=== PATIENT | male | born 1980 ===

== ENCOUNTER 2016-11-27 14:23 | Emergency (ER) | payer OTHER ==
[2016-11-27 14:30] VITALS: BP 149/93; PULSE 80; RESP 18; TEMP 98.4; O2SAT 100
--- NOTE | 2016-11-27 14:48 | ED PDOC ---
Syncope/Near Syncope/Dizziness Time Seen by Provider: 11/27/16 14:43 Chief Complaint (Nursing): Dizziness/Lightheaded Chief Complaint (Provider): Crisis eval History Per: Patient Additional Complaint(s): Pt is a 36 yo male, PMH of High Cholesterol, presents to ED with complaints of acute onset of feeling jittery, dizzy, diaphoretic and nervous ~ 40 minutes ago after he was involved in a verbal alteration with his and mother. No chest pain or SOB Past Medical History Reviewed: Nursing Documentation, Vital Signs Vital Signs: Last Vital Signs Temp 98.4 F 11/27/16 14:28 Pulse 80 11/27/16 14:28 Resp 18 11/27/16 14:28 BP 149/93 H 11/27/16 14:28 Pulse Ox 100 11/27/16 14:28 - Medical History PMH: Hypercholesterolemia - Surgical History Surgical History: No Surg Hx - Family History Family History: States: Unknown Family Hx - Living Arrangements Living Arrangements: With Family - Social History Current smoker - smoking cessation education provided: No Alcohol: Social Drugs: Denies - Immunization History Hx Tetanus Toxoid Vaccination: No Hx Influenza Vaccination: No Hx Pneumococcal Vaccination: No - Home Medications Home Medications: Ambulatory Orders Medication Instructions Recorded Ondansetron [Zofran] 4 mg PO Q8H #10 tab 11/13/15 Alprazolam [Xanax] 0.5 mg PO HS #5 tab 11/27/16 - Allergies Allergies/Adverse Reactions: Allergies Allergy/AdvReac Type Severity Reaction Status Date / Time No Known Allergies Allergy Verified 11/27/16 14:28 Review of Systems ROS Statement: Except As Marked, All Systems Reviewed And Found Negative Physical Exam - Reviewed Nursing Documentation Reviewed: Yes Vital Signs Reviewed: Yes - Physical Exam Appears: Positive for: Well, Non-toxic, No Acute Distress Head Exam: Positive for: ATRAUMATIC, NORMAL INSPECTION, NORMOCEPHALIC Skin: Positive for: Normal Color, Warm, DRY Eye Exam: Positive for: EOMI, Normal appearance, PERRL ENT: Positive for: Normal ENT Inspection Neck: Positive for: Normal, Painless ROM Cardiovascular/Chest: Positive for: Regular Rate, Rhythm Respiratory: Positive for: CNT, Normal Breath Sounds Gastrointestinal/Abdominal: Positive for: Normal Exam, Bowel Sounds, Soft Back: Positive for: Normal Inspection Extremity: Positive for: Normal ROM Neurologic/Psych: Positive for: Alert, Oriented - Laboratory Results Result Diagrams: 11/27/16 14:45 11/27/16 14:45 - ECG O2 Sat by Pulse Oximetry: 100 Medical Decision Making Medical Decision Making: Pt asymptomatic, declines analgesics or anxiolytics at this time EKG interpreted and cleared by ED MD Labs resulted and reviewed with Pt who demonstrated full understanding Pt doing well on re-eval. declined crisis eval Coping mechanisms discussed Stable for discharge at this time Disposition - Clinical Impression Clinical Impression: Panic attack - Patient ED Disposition Is Patient to be Admitted: No - Disposition Disposition: Routine/Home Disposition Time: 18:52 Condition: STABLE Prescriptions: Alprazolam [Xanax] 0.5 mg PO HS #5 tab Instructions: Panic Attack (ED) Forms: [facility] (Gambian)
[2016-11-27 15:08] LABS: BASO % 0.4 % (0.0-2.0); EOS # 0.3 K/uL (0.0-0.7); EOS % 4.2 % (0.0-4.0); HEMOGLOBIN 15.8 g/dL (12.0-18.0); LYMPH # 3.4 K/uL (1.0-4.3); LYMPH % 49.5 % (20.0-40.0); MEAN CELL VOLUME 88.6 fl (80.0-94.0); MEAN CORPUSCULAR HEMOGLOBIN 30.2 pg (27.0-31.0); MEAN PLATELET VOLUME 9.9 fl (7.2-11.7); MONO # 0.7 K/uL (0.0-0.8); MONO % 10.5 % (0.0-10.0); NEUT # 2.4 K/uL (1.8-7.0); NEUT % 35.4 % (50.0-75.0); RBC 5.25 Mil/uL (4.40-5.90); RED CELL DISTRIBUTION WIDTH 13.2 % (11.5-14.5); WHITE BLOOD COUNT 6.8 K/uL (4.8-10.8)
[2016-11-27 15:11] LABS: URINE BACTERIA RARE (<OCC); URINE BILIRUBIN NEGATIVE (NEGATIVE); URINE BLOOD NEGATIVE (NEGATIVE); URINE CLARITY CLEAR (Clear); URINE COLOR YELLOW (YELLOW); URINE GLUCOSE (UA) NEG (Normal); URINE LEUKOCYTE ESTERASE NEG Leu/uL (Negative); URINE NITRATE NEGATIVE (NEGATIVE); URINE PROTEIN NEGATIVE (NEGATIVE); URINE UROBILINOGEN 0.2-1.0 mg/dL (0.2-1.0)
[2016-11-27 15:26] LABS: ALB/GLOB RATIO 1.4 (1.0-2.1); ALT/SGPT 49 U/L (21-72); AST/SGOT 40 U/L (17-59); BLOOD UREA NITROGEN 20 mg/dl (9-20); CALCIUM 9.4 mg/dL (8.4-10.2); GFR AFRICAN-AMERICAN > 60; GFR NON-AFRICAN AMERICAN > 60
--- NOTE | 2016-11-28 13:00 | CARD ---
APPROVED REPORT EKG Measurement Heart [id number] <Conclusion> Normal sinus rhythm Normal ECG
== END 2016-11-27 17:13 | disposition home or self-care (01) ==
LOC: H.ER 14:23
DX: F41.0 Panic disorder [episodic paroxysmal anxiety] (principal); E78.00 Pure hypercholesterolemia, unspecified